=== PATIENT | female | born 1990 | race American Indian/Alaskan Native ===

== ENCOUNTER 2016-09-21 15:53 | Emergency (ER) | payer SELFPAY ==
[2016-09-21 16:36] VITALS: BP 134/81
[2016-09-21 17:23] LABS: Basophils % (Auto) 0.7 % (0.0-1.8); Eosinophils % (Auto) 0.5 % (0.0-4.3); Hematocrit 41.5 % (30.3-42.9); Mean Corpuscular HGB Conc 34 % (30-34); Mean Corpuscular Hemoglobin 33 pg (28-32); Mean Corpuscular Volume 98 fl (79-97); Platelet Count 197 K/mm3 (140-440); Red Blood Count 4.25 M/mm3 (3.65-5.03); Red Cell Distribution Width 13.7 % (13.2-15.2); White Blood Count 4.6 K/mm3 (4.5-11.0)
[2016-09-21 17:29] LABS: Bacteria,Urine 2+ /HPF (Negative); Bilirubin,Urine NEG (Negative); Blood,Urine MOD (Negative); Ketones,Urine 80 mg/dL (Negative); Leukocyte Esterase,Urine NEG (Negative); Mucus,Urine 3+ /HPF; Nitrite,Urine NEG (Negative)
[2016-09-21 17:45] LABS: Anion Gap 23 mmol/L; BUN/Creatinine Ratio 36.66; Blood Urea Nitrogen 11 mg/dL (7-17); Calcium 9.7 mg/dL (8.4-10.2); Carbon Dioxide 21 mmol/L (22-30); Chloride 98.1 mmol/L (98-107); Glucose 93 mg/dL (65-100); Potassium 3.6 mmol/L (3.6-5.0); Sodium 138 mmol/L (137-145)
--- NOTE | 2016-09-24 15:29 | ED Elopement Review ---
ED Pt Elopement review - Results review Lab results: Laboratory Tests 09/21/16 09/21/16 09/21/16 16:36 16:40 16:42 WBC 4.6 RBC 4.25 Hgb 14.0 Hct 41.5 MCV 98 H MCH 33 H MCHC 34 RDW 13.7 Plt Count 197 Lymph % (Auto) 32.1 Haines % (Auto) 12.4 H Eos % (Auto) 0.5 Baso % (Auto) 0.7 Lymph # 1.5 Haines # 0.6 Eos # 0.0 Baso # 0.0 Seg Neutrophils % 54.3 Seg Neutrophils # 2.5 Sodium 138 Potassium 3.6 Chloride 98.1 Carbon Dioxide 21 L Anion Gap 23 BUN 11 Creatinine 0.3 L Estimated GFR > 60 BUN/Creatinine Ratio 36.66 Glucose 93 Calcium 9.7 HCG, Quant 58215 H Urine Color Urine Turbidity Urine pH Ur Specific Dillon Urine Protein Urine Glucose (UA) Urine Ketones Urine Blood Urine Nitrite Urine Bilirubin Urine Urobilinogen Ur Leukocyte Esterase Urine WBC (Auto) Urine RBC (Auto) U Epithel Cells (Auto) Urine Bacteria (Auto) Urine Mucus 09/21/16 17:02 WBC RBC Hgb Hct MCV MCH MCHC RDW Plt Count Lymph % (Auto) Haines % (Auto) Eos % (Auto) Baso % (Auto) Lymph # Haines # Eos # Baso # Seg Neutrophils % Seg Neutrophils # Sodium Potassium Chloride Carbon Dioxide Anion Gap BUN Creatinine Estimated GFR BUN/Creatinine Ratio Glucose Calcium HCG, Quant Urine Color Myra Urine Turbidity Clear Urine pH 6.0 Ur Specific Dillon 1.030 Urine Protein 100 mg/dl Urine Glucose (UA) 50 Urine Ketones 80 Urine Blood Mod Urine Nitrite Neg Urine Bilirubin Neg Urine Urobilinogen 2.0 Ur Leukocyte Esterase Neg Urine WBC (Auto) 3.0 Urine RBC (Auto) 27.0 U Epithel Cells (Auto) 8.0 Urine Bacteria (Auto) 2+ Urine Mucus 3+ - Call Back decision Pt Call Back Decision: No action required
== END 2016-09-21 18:55 | disposition left against medical advice (07) ==
LOC: ED 15:53
DX: R10.9 Unspecified abdominal pain (principal); R11.2 Nausea with vomiting, unspecified; Z53.21 Procedure and treatment not carried out due to patient leaving prior to being seen by health care provider
CPT/HCPCS: 36415; 80048; 81001; 84702; 85025